=== PATIENT | female | born 2005 | race Caucasian/White ===

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

== ENCOUNTER 2025-02-04 02:49 | Emergency (ER) | payer OTHER, SELFPAY ==
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
[2025-02-04 02:49] VITALS: BP 134/83; PULSE 105; RESP 20; TEMP 36.6; O2SAT 100
[2025-02-04 03:49] LABS: BEDSIDEPREGUCG Negative (Negative)
--- NOTE | 2025-02-04 03:49 | PC.NURSE ---
This RN completed a DUI kit on pt. Kit given to Phyllis officer at bedside. Officer stated pt can leave after discharge.
[2025-02-04 03:56] LABS: Hematocrit 40.5 % (37.0-47.0); Hemoglobin 14.6 g/dL (12.0-15.0); Immature Granulocyte Percent A 1.4 % (0-0.5); Lymphocytes Absolute Auto 1.97 K/mm3 (0.9-3.2); Mean Corpuscular HGB Conc 36.0 g/dl (32-36); Mean Corpuscular Hemoglobin 31.1 pg (26-34); Mean Corpuscular Volume 86.2 fl (80-100); Nucleated Red Blood Cells Absolute Auto 0.000 K/mm3 (0.0-0.012); Nucleated Red Blood Cells Perc 0.0 % (0.0-0.2); Platelet Count Result 274 k/mm3 (150-375); Red Blood Count 4.70 M/mm3 (4.2-5.4); White Blood Count 7.2 K/mm3 (4.5-10.0)
[2025-02-04 04:01] LABS: Alanine Aminotransferase 18 U/L (6-35); Albumin Level 4.9 g/dL (3.5-5.1); Alkaline Phosphatase 53 U/L (38-126); Anion Gap 16 mmol/L (4-12); Aspartate Amino Transferase 34 U/L (14-36); Bilirubin,Total 0.6 mg/dL (0.2-1.3); Blood Urea Nitrogen 8 mg/dL (7-17); Calcium 8.9 mg/dL (8.4-10.2); Carbon Dioxide 18 mmol/L (22-30); Chloride 110 mmol/L (98-107); Estimated Glomerular Filt Rate > 60; Glucose 109 mg/dL (65-110); Potassium 3.4 mmol/L (3.4-5.0); Sodium 144 mmol/L (137-145); Total Protein 8.0 g/dL (6.3-8.2)
[2025-02-04 04:02] LABS: SPREG INTERNAL CONTROL Positive
[2025-02-04 04:03] LABS: Serum Qual hCG Negative
[2025-02-04 04:04] LABS: Add Urine Microscopic? YES; Appearance Urine Clear (Clear); Glucose Urine UA Negative (Negative); Leukocyte Esterase Ur Negative LEU/UL (Negative); Need Manual Microscopic Reviewed; Nitrate Urine Negative (Negative); Non Pathogenic Casts 0-2; Specific Grav Ur 1.003 (1.001-1.035)
[2025-02-04 04:12] LABS: Cannabinoid Screen Urine Positive (Negative)
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
[2025-02-04 06:18] VITALS: BP 124/82; PULSE 112; RESP 14; O2SAT 100
[2025-02-04] MEDS: KETOROLAC 15 MG/ML VIAL (*BKC) IV PUSH (07:16)
[2025-02-04] MEDS: ACETAMINOPHEN 500 MG TABLET 1000 MG PO (07:16)
[2025-02-04 07:18] VITALS: BP 111/76; PULSE 96; RESP 16; O2SAT 100
== END 2025-02-04 07:59 | disposition home or self-care (01) ==
PROVIDERS: Emergency Provider Student in an Organized Health Care Education/Training Program
DX: S70.02XA Contusion of left hip, initial encounter (principal); S60.511A Abrasion of right hand, initial encounter; F10.129 Alcohol abuse with intoxication, unspecified; F12.90 Cannabis use, unspecified, uncomplicated; Y90.6 Blood alcohol level of 120-199 mg/100 ml; V48.5XXA Car driver injured in noncollision transport accident in traffic accident, initial encounter
CPT/HCPCS: 36415; 70450; 71260; 72125; 74177; 80053; 80307; 81001; 81025; 82077; 84703; 85025; 96374; 99284; A9270; J1885; Q9967